=== PATIENT | female | born 1980 | race Caucasian/White ===

== ENCOUNTER 2023-07-20 18:39 | Emergency (ER) | payer OTHER, SELFPAY ==
--- NOTE | ~2023-07-20 | XR_ITS ---
Examination: Chest x-ray with bilateral RIBS, left shoulder, right hip and AP pelvis CLINICAL INDICATION: Pain. COMPARISON: Chest the 2010. TECHNIQUE: AP pelvis and right hip 3 views. Left shoulder 3 views. Chest AP 1 view and left ribs 3 views. FINDINGS: AP PELVIS: There is normal symmetry of bilateral hip joints and SI joints. There are 2 sclerotic density seen overlying the left iliac bone likely small bone islands. No lytic process is seen. AP and frog-leg view right hip reveals no bony erosive changes, loose bodies are osteophytes. No acute fracture or dislocation. The soft tissues are normal. LEFT SHOULDER: The glenohumeral and AC joint spaces are maintained normal. No visible acute fracture, dislocation or subluxation seen. The soft tissues are normal. Chest and bilateral RIBS: The lungs are fairly well expanded and clear. The heart size and pulmonary vascularity is normal. Multiple views of bilateral ribs reveal no visible fracture or bony abnormality. The soft tissues are normal. XR/XR shoulder LT min 2V IMPRESSION: 1. Unremarkable AP pelvis and bilateral hip exam. 2. Unremarkable left shoulder exam. 3. Unremarkable chest and bilateral rib exam. No visible rib fractures seen. The lungs are well expanded and clear.
--- NOTE | ~2023-07-20 | XR_ITS ---
Examination: Chest x-ray with bilateral RIBS, left shoulder, right hip and AP pelvis CLINICAL INDICATION: Pain. COMPARISON: Chest the 2010. TECHNIQUE: AP pelvis and right hip 3 views. Left shoulder 3 views. Chest AP 1 view and left ribs 3 views. FINDINGS: AP PELVIS: There is normal symmetry of bilateral hip joints and SI joints. There are 2 sclerotic density seen overlying the left iliac bone likely small bone islands. No lytic process is seen. AP and frog-leg view right hip reveals no bony erosive changes, loose bodies are osteophytes. No acute fracture or dislocation. The soft tissues are normal. LEFT SHOULDER: The glenohumeral and AC joint spaces are maintained normal. No visible acute fracture, dislocation or subluxation seen. The soft tissues are normal. Chest and bilateral RIBS: The lungs are fairly well expanded and clear. The heart size and pulmonary vascularity is normal. Multiple views of bilateral ribs reveal no visible fracture or bony abnormality. The soft tissues are normal. XR/XR hip RT w [id number] IMPRESSION: 1. Unremarkable AP pelvis and bilateral hip exam. 2. Unremarkable left shoulder exam. 3. Unremarkable chest and bilateral rib exam. No visible rib fractures seen. The lungs are well expanded and clear.
--- NOTE | ~2023-07-20 | XR_ITS ---
Examination: Chest x-ray with bilateral RIBS, left shoulder, right hip and AP pelvis CLINICAL INDICATION: Pain. COMPARISON: Chest the 2010. TECHNIQUE: AP pelvis and right hip 3 views. Left shoulder 3 views. Chest AP 1 view and left ribs 3 views. FINDINGS: AP PELVIS: There is normal symmetry of bilateral hip joints and SI joints. There are 2 sclerotic density seen overlying the left iliac bone likely small bone islands. No lytic process is seen. AP and frog-leg view right hip reveals no bony erosive changes, loose bodies are osteophytes. No acute fracture or dislocation. The soft tissues are normal. LEFT SHOULDER: The glenohumeral and AC joint spaces are maintained normal. No visible acute fracture, dislocation or subluxation seen. The soft tissues are normal. Chest and bilateral RIBS: The lungs are fairly well expanded and clear. The heart size and pulmonary vascularity is normal. Multiple views of bilateral ribs reveal no visible fracture or bony abnormality. The soft tissues are normal. XR/XR ribs BI min 4V w CXR1V IMPRESSION: 1. Unremarkable AP pelvis and bilateral hip exam. 2. Unremarkable left shoulder exam. 3. Unremarkable chest and bilateral rib exam. No visible rib fractures seen. The lungs are well expanded and clear.
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
[2023-07-20 18:43] VITALS: BP 163/95; PULSE 119; RESP 20; TEMP 36.8; O2SAT 100; BMI 22.5
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
[2023-07-20 20:52] VITALS: PULSE 90; RESP 14; O2SAT 99
--- NOTE | 2023-07-20 21:45 | PC.NURSE ---
Patient requesting to have photos taken and documented in medical record. This RN went in with [employer] directory systems administrator to take images. All images were taken with tiger text and sent directly to Dr. Herrera
== END 2023-07-20 22:21 | disposition home or self-care (01) ==
PROVIDERS: Emergency Provider Emergency Medicine Emergency Medical Services; PCP Internal Medicine
DX: S13.9XXA Sprain of joints and ligaments of unspecified parts of neck, initial encounter (principal); S10.93XA Contusion of unspecified part of neck, initial encounter; S20.02XA Contusion of left breast, initial encounter; S40.012A Contusion of left shoulder, initial encounter; S43.402A Unspecified sprain of left shoulder joint, initial encounter; S30.0XXA Contusion of lower back and pelvis, initial encounter; R51.9 Headache, unspecified; M54.2 Cervicalgia; M25.551 Pain in right hip; R07.81 Pleurodynia; Y04.2XXA Assault by strike against or bumped into by another person, initial encounter; Y93.9 Activity, unspecified; Y92.9 Unspecified place or not applicable; Y99.9 Unspecified external cause status
CPT/HCPCS: 71111; 73030; 73502; 99283; 99284